=== PATIENT | female | born 2000 | race Caucasian/White ===

== ENCOUNTER 2022-06-16 13:36 | Inpatient (IN) | payer MEDICAID, SELFPAY ==
[2022-06-16] VITALS (77 sets, daily range): BP systolic 67–148; BP diastolic 33–91; PULSE 74–164; RESP 17–18; TEMP 30.8–37.4; O2SAT 87–100; BMI 40.9
[2022-06-16] MEDS: ondansetron 2 mg/ML SDV 2 mL 4 MG IVP (13:55)
[2022-06-16] MEDS: dextrose 5%-lactated ringers 1,000 ML 500 ML IV (13:55)
[2022-06-16] MEDS: miSOPROStol 100 mcg tablet 25 MCG SUBLINGUAL (14:28)
[2022-06-16 14:42] LABS: Basophils % 0.1 %; Eosinophils # 0.1 10^3/uL (0.0-0.8); Eosinophils % 0.4 %; Hematocrit 39.8 % (37.0-47.0); Hemoglobin 12.6 g/dL (11.5-15.3); Lymphocytes # 1.3 10^3/uL (1.5-6.5); Lymphocytes % 7.9 %; Mean Corpuscular HGB Conc 31.7 g/dL (30.0-36.0); Mean Corpuscular Hemoglobin 28.3 pg (28.0-34.0); Mean Corpuscular Volume 89.4 fl (81-99); Mean Platelet Volume 11.7 fL (7.4-10.4); Monocytes # 0.9 10^3/uL (0.2-0.9); Monocytes % 5.2 %; Neutrophils # 14.07 10^3/uL (1.8-8.0); Nucleated Red Blood Cells % 0 %; Platelet Count 257 10^3/cmm (130-400); Red Blood Count 4.45 10^6/uL (4.1-5.3); Red Cell Distribution Width 14.7 % (12.1-15.1); White Blood Count 16.4 10^3/uL (4.5-13.0)
[2022-06-16] MEDS: hyDROXYzine 25 mg Capsule 50 MG PO (15:05)
[2022-06-16] MEDS: fentaNYL 50 mcg/mL INJ 2mL IVP (18:01)
[2022-06-16] MEDS: lactated ringers 1,000 ML 999 ML IV ×2 (18:02→19:05)
--- NOTE | 2022-06-16 18:32 | P.ANESASSM_ITS ---
Pre-Anesthetic Assessment Height/Weight: Height 1.57 m Weight 101.605 kg Temp Pulse Resp BP O2 Del Method 98.8 F 94 17 94/59 06/16/22 16:25 06/16/22 18:01 06/16/22 18:01 06/16/22 18:01 06/16/22 15:27 Familial anesthetic complications: None Was Beta Barrera taken within 24 hours: N/A Was Clonidine taken within 24 hours: N/A Social No alcohol and No tobacco Exam alert, oriented x 3, clear to auscultation bilaterally and regular rate & rhythm Airway Submandibular: within normal limits Cervical ROM: within normal limits Mallampati: Class III Dentition: full History/ROS No significant history except as noted and No significant complaints Pulmonary None reported CV/HEM None reported None reported Hepatic None reported GI Gastroesophageal Reflux Disease Metabolic Morbid Obesity [facility] None reported Neuropsych None reported Anesthetic Plan ASA status: 2 Anesthesia: Anesthesia Evaluation and Regional (specify below) (Epidural) Risk of > 500 ml blood loss (7ml/kg in children): No Medications/Allergies Current Medications Generic Name Dose Route Start Last Admin Trade Name Freq PRN Reason Stop Dose Admin Hydroxyzine Pamoate 50 mg 06/16/22 13:31 06/16/22 15:05 Hydroxyzine 25 Mg Capsule PO 50 mg QID PRN Administration sleep, agitation or itching Dextrose/Lactated Ringer's 1,000 mls @ 125 mls/hr 06/16/22 13:45 06/16/22 15:35 Dextrose 5%-Lactated Ringers IV 0 mls/hr .Q8H ADA Infusion Lactated Ringer's 1,000 mls @ 999 mls/hr 06/16/22 17:46 06/16/22 18:02 Lactated Ringers IV 999 mls/hr .Q1H1M PRN Administration See label comments Ondansetron HCl 4 mg 06/16/22 13:31 06/16/22 13:55 Ondansetron 2 Mg/Ml Sdv 2 Ml IVP 4 mg Q4H PRN Administration NAUSEA AND VOMITING PFSH Anesthesia Female Reproductive History : 1 Data Anesthesia 06/16/22 13:40 Short CBC 06/16/22 Range/Units 13:40 WBC 16.4 H (4.5-13.0) 10^3/uL Hgb 12.6 (11.5-15.3) g/dL Hct 39.8 (37.0-47.0) % MCV 89.4 (81-99) fl Plt Count 257 (130-400) 10^3/cmm Neut % (Auto) 86.0 % Neut # (Auto) 14.07 H (1.8-8.0) 10^3/uL Cardiac Studies: No Data to Display
--- NOTE | 2022-06-16 19:24 | ANES.PROC ---
Anesthesia Procedures Procedure/Date: 06/16/22 Epidural: Time Out Performed: Yes Consents Signed: Procedure Consent and NPO Consent Consent: requested by attending/covering physician, from patient, risks and benefits reviewed and patient agrees to proceed Lumbar Level: L2-L3 Epidural position: sitting Epidural procedure: sterile prep of area (betadine), 1% lidocaine to numb the area (3 mLs), neg for paresthesia, test dose given, 1.5% xylocaine 1:200k epi (3 mL/2 mL), 0.2% Ropivacaine bolus ml (5 mLs), placed PCEA, no systemic response, sterile dressing applied, L.U.D. no apparent complications and 0.2% Ropiavacaine @ mls/hr (10 mLs/hr) Additional Comments: Attempt x2. FANTA at 8cm catheter threaded to 13 cm.
[2022-06-16] MEDS: dextrose 5%-lactated ringers 1,000 ML 125 ML IV (20:26)
[2022-06-16] MEDS: oxytocin 30 UNIT/500 ML BAG IV (23:34)
[2022-06-17] VITALS (31 sets, daily range): BP systolic 100–130; BP diastolic 50–89; PULSE 39–123; RESP 15–16; TEMP 36.6–38.2; O2SAT 98–100
[2022-06-17] MEDS: acetaminophen 325 mg Tablet 650 MG PO (01:01)
[2022-06-17] MEDS: ampicillin 2,000 MG in sodium chloride 0.9% (plus) 50 ML 100 MG IV (01:11)
--- NOTE | 2022-06-17 03:56 | P.HPUD_ITS ---
Labor & Delivery H&P Update Date of Procedure: June 17, 2022 Date H&P Performed: 06/13/22 Changes to previous documentation: Moist vaginal vault. Nitrazine positive. Admission Diagnosis: 22-year-old 1 at 38 weeks estimated gestational age presenting with spontaneous rupture of membranes Planned procedure: Spontaneous vaginal delivery Other information: The patient is a 22-year-old 1 female who has had an unremarkable . There have been no complications. Her labs have been rel atively unremarkable. They are as follows. Her blood type is a positive. Her antibody screen was negative. Her glucose screen was negative. She is rubella immune. Her GBS status is negative. The remainder of her infectious disease profile was within normal limits. The patient presented to the hospital complaining of possible rupture membranes. She was found to be nitrazine positive.
--- NOTE | 2022-06-17 04:03 | PM.DELIVERY ---
Delivery Note: Date of delivery: June 17, 2022 Pre-delivery diagnoses: 22-year-old 1 at 38 weeks estimated gestational Post-delivery diagnoses: Status post vaginal delivery Procedure: Spontaneous vaginal delivery Delivering Physician: Gal Diaz Estimated blood loss (mL): 100 Pre-Delivery Course: The patient presented to the hospital with spontaneous rupture of membranes. She was placed on Cytotec 25 mcg x 1. An epidural was placed. Pitocin augmentation was initiated the patient progressed to complete. The heart tones did become tachycardic for the last several hours. The mother also had a fever of 100.7. Because the patient also had a white count of 16,000, ampicillin was initiated. Delivery: DELIVERY: The patient progressed to complete without difficulty. She delivered a [] with a weight of [] with Apgars of []. The baby was delivered from the [] position. The baby's mouth and nose were suctioned at the site of the perineum. The baby was then completely delivered and placed on the mother's abdomen. The cord was then clamped and cut. There was no nuchal cord. There was no meconium. The placenta and 3 vessel cord were delivered intact shortly thereafter. The perineum and vaginal vault were carefully examined. No lacerations were noted. Both the mother and the baby were in stable condition. Post-Delivery Status: Good A&P Assessment and plan (1) 38 weeks gestation of : (2) Spontaneous vaginal delivery: I anticipate routine care. While the patient did have maternal fever she has no other symptoms of infection. The amniotic fluid did not smell, she has not had abdominal pain that is unusual. Coding Level of Care Code Acute Code for Chg Fwd Diagnoses 38 weeks gestation of Z3A.38 Spontaneous vaginal delivery O80
[2022-06-17] MEDS: benzocaine-menthol 78 gm Canister 1 SPRAY TOPICAL (06:25)
[2022-06-17] MEDS: lanolin oint 7 gm 1 APPLIC TOPICAL (06:25)
[2022-06-17] MEDS: prenatal vitamin Capsule 1 CAP PO (08:18)
[2022-06-17] MEDS: ibuprofen 800 mg tablet PO ×3 (08:18→20:18)
[2022-06-17] MEDS: docusate sodium 100 mg Capsule PO ×2 (08:18→20:18)
[2022-06-17] MEDS: HYDROcodone-acetaminophen 5-325 mg Tablet PO (08:18)
[2022-06-17 16:37] LABS: Hematocrit 30.5 % (37.0-47.0); Hemoglobin 9.7 g/dL (11.5-15.3); Mean Corpuscular HGB Conc 31.8 g/dL (30.0-36.0); Mean Corpuscular Hemoglobin 28.4 pg (28.0-34.0); Mean Corpuscular Volume 89.4 fl (81-99); Mean Platelet Volume 11.3 fL (7.4-10.4); Platelet Count 177 10^3/cmm (130-400); Red Blood Count 3.41 10^6/uL (4.1-5.3); White Blood Count 10.6 10^3/uL (4.5-13.0)
--- NOTE | 2022-06-18 03:30 | P.DS_ITS ---
Discharge Providers WE[employer] Date of Admission: 06/16/22 13:36 Date of Discharge: 06/18/22 Attending Provider at Admission: Gal Diaz MD Attending Provider at Discharge: Gal Diaz MD Diagnoses at Discharge Discharge Diagnosis (1) 38 weeks gestation of : Status: Acute (2) Spontaneous vaginal delivery: Status: Acute Reason for Visit Reason for Visit: Abdominal pain Hospital Course Hospital Course The patient presented to the hospital with spontaneous rupture membranes. She was given Cytotec 25 mcg x 1 to augment her labor. An epidural was placed. Pitocin augmentation was also implemented. There was some tachycardia. Her temperature also increased to 100.7. She also had a white blood count of greater than 16,000. She did not have any abdominal tenderness, or any foul- smelling amniotic fluid. She he was put on prophylactic antibiotics a couple of hours prior to delivery. She progressed to complete and had an unremarkable delivery of a healthy female . Her course has been unremarkable. Her bleeding has been within normal limits. She initially attempted to breast-feed, but decided to change to bottlefeed instead. Her pain has been well controlled. Information Peripartum Data: Infant Delivery Method: Vaginal Physical Exam Narrative: The patient is alert. She appears comfortable. Her heart has a regular rate and rhythm with no murmurs appreciated. Lungs are clear to auscultation bilaterally. Her fundus is firm and below the umbilicus. Urinary Catheter Management: Carpenter: Cath Placed During This Visit: yes, but has since been removed by the nurse Reason for Continuing Indwelling Catheter: Decision to DC Catheter Urinary Catheter Date of Insertion: 06/16/22 Urinary Catheter Time of Insertion: 20:05 Date Urinary Catheter Removed: 06/17/22 Time Urinary Catheter Discontinued: 03:06 Discharge Data Studies Completed and Pending Laboratory Results WBC 10.6 10^3/uL (4.5-13.0) 06/17/22 16:20 RBC 3.41 10^6/uL (4.1-5.3) L 06/17/22 16:20 Hgb 9.7 g/dL (11.5-15.3) L 06/17/22 16:20 Hct 30.5 % (37.0-47.0) L 06/17/22 16:20 MCV 89.4 fl (81-99) 06/17/22 16:20 MCH 28.4 pg (28.0-34.0) 06/17/22 16:20 MCHC 31.8 g/dL (30.0-36.0) 06/17/22 16:20 RDW 15.0 % (12.1-15.1) 06/17/22 16:20 Plt Count 177 10^3/cmm (130-400) D 06/17/22 16:20 MPV 11.3 fL (7.4-10.4) H 06/17/22 16:20 Neut % (Auto) 86.0 % 06/16/22 13:40 Lymph % (Auto) 7.9 % 06/16/22 13:40 [place] % (Auto) 5.2 % 06/16/22 13:40 Eos % (Auto) 0.4 % 06/16/22 13:40 Baso % (Auto) 0.1 % 06/16/22 13:40 Neut # (Auto) 14.07 10^3/uL (1.8-8.0) H 06/16/22 13:40 Lymph # (Auto) 1.3 10^3/uL (1.5-6.5) L 06/16/22 13:40 [place] # (Auto) 0.9 10^3/uL (0.2-0.9) 06/16/22 13:40 Eos # (Auto) 0.1 10^3/uL (0.0-0.8) 06/16/22 13:40 Baso # (Auto) 0.0 10^3/uL (0.0-0.1) 06/16/22 13:40 Nucleated RBC % (auto) 0 % 06/16/22 13:40 Nucleated RBCs # 0.0 /100WBC 06/16/22 13:40 Vitals Last Vital Signs Temp 98.0 F 06/17/22 21:05 Pulse 77 06/17/22 21:05 Resp 16 06/17/22 21:05 BP 125/85 06/17/22 21:05 Pulse Ox 98 06/17/22 21:05 O2 Del Method 06/17/22 21:05 Discharge Plan Discharge Patient Disposition: Home Condition: Stable Prescriptions: New ibuprofen 800 mg Tablet 800 mg PO TID Qty: 45 0RF Continued ferrous sulfate 325 mg (65 mg iron) Tablet 325 mg PO BID Vitamin 27 mg iron- 800 mcg Tablet 1 tab PO DAILY Discontinued famotidine [Pepcid] 20 mg Tablet 20 mg PO DAILY Discharge Orders: Discharge Order (Routine); Ordered 06/18/22 Ordered By: Gal Diaz Referrals: Gal Diaz MD [Physician] - 6 Weeks Discharge Diet: Usual diet Discharge Activity: Limit activity as instructed Patient Instructions: Opioid Safety Discharge Attestations WEB [employer]ESSMAN Time Spent in Discharge Care*: less than 30 min Coding Level of Care Code Acute Code for Chg Fwd Diagnoses 38 weeks gestation of Z3A.38 Spontaneous vaginal delivery O80
[2022-06-18 05:00] VITALS: BP 110/73; PULSE 65; RESP 18; TEMP 36.6; TEMP 36.7; O2SAT 98
[2022-06-18] MEDS: HYDROcodone-acetaminophen 5-325 mg Tablet PO (06:13)
--- NOTE | 2022-06-18 08:00 | ANE.PACU2 ---
Inpatient post-anesthesia follow up: Airway intact: Yes Vital signs: Temperature 98.1 F Pulse Rate 61 Respiratory Rate 17 Blood Pressure 115/60 Pulse Oximetry 98 Oxygen Delivery Me thod Room Air Oxygen Flow Rate Fraction of Inspir ed Oxygen Hydration adequate: Yes Nausea and vomiting: No Pain level: 1 Mental status: Baseline
[2022-06-18 09:45] VITALS: BP 124/67; PULSE 60; RESP 17; TEMP 36.8; O2SAT 98
[2022-06-18] MEDS: ibuprofen 800 mg tablet PO (10:12)
[2022-06-18] MEDS: docusate sodium 100 mg Capsule PO (10:12)
[2022-06-18] MEDS: prenatal vitamin Capsule 1 CAP PO (10:13)
[2022-06-18 13:15] VITALS: BP 115/60; PULSE 61; RESP 17; TEMP 36.7
[2022-06-18 13:45] VITALS: BP 115/60; PULSE 61; RESP 17; TEMP 36.7
== END 2022-06-18 13:45 | disposition home or self-care (01) | DRG 806 ==
LOC: OPOB 15:47 → OBGYN 15:58
PROVIDERS: Admitting Provider Family Medicine; Visit Provider Family Medicine
DX: O75.89 Other specified complications of labor and delivery (principal); O75.2 Pyrexia during labor, not elsewhere classified; Z37.0 Single live birth; R79.89 Other specified abnormal findings of blood chemistry; O76 Abnormality in fetal heart rate and rhythm complicating labor and delivery; O70.1 Second degree perineal laceration during delivery; Z3A.38 38 weeks gestation of pregnancy
CPT/HCPCS: 12345; 36415; 51702; 59025; 59409; 83986; 85025; 85027; 96374; 98960; 99211; J0290; J2405; J2590; J2795; J3010; J7120; J7121

== ENCOUNTER 2023-12-10 04:48 | Inpatient (IN) | payer MEDICAID, SELFPAY ==
[2023-12-09] VITALS (19 sets, daily range): BP systolic 110–144; BP diastolic 64–89; PULSE 85–120; TEMP 35.8; BMI 42.4
--- NOTE | 2023-12-09 22:20 | P.ANES_ITS ---
Anesthesia Procedures Procedure/Date: 12/10/23 Epidural: Time Out Performed: Yes Consents Signed: Procedure Consent Consent: requested by attending/covering physician and from patient Lumbar Level: L3-L4 Epidural position: sitting Epidural procedure: sterile prep of area, 1% lidocaine to numb the area, negative for paresthesia passed, test d ose given and 1.5% xylocaine 1:200k epi Additional Comments: 5 mL bolus of 0.2% ropivacaine as well a s 0.2% ropivacaine running at 10 mL/h
[2023-12-09] MEDS: lactated ringers 1,000 ML 999 ML IV ×2 (22:25→23:27)
[2023-12-09 22:43] LABS: Basophils % 0.2 %; Eosinophils # 0.1 10^3/uL (0.0-0.8); Eosinophils % 0.6 %; Hematocrit 30.8 % (36-47); Lymphocytes # 2.5 10^3/uL (0.8-4.8); Lymphocytes % 20.2 %; Mean Corpuscular HGB Conc 31.8 g/dL (30-55); Mean Corpuscular Hemoglobin 27.5 pg (27-33); Mean Corpuscular Volume 86.3 fl (85-98); Mean Platelet Volume 11.6 fL (7.4-10.4); Monocytes % 7.8 %; Neutrophils # 8.82 10^3/uL (1.8-7.7); Neutrophils % 70.7 %; Nucleated Red Blood Cells % 0 %; Platelet Count 264 10^3/cmm (157-399); Red Blood Count 3.57 10^6/uL (3.85-5.65); Red Cell Distribution Width 14.4 % (12.1-15.1); White Blood Count 12.46 10^3/uL (3.29-11.43)
--- NOTE | 2023-12-09 22:48 | P.ANESASSM_ITS ---
Pre-Anesthetic Assessment Height/Weight: Height 5 ft 2 in Weight 232 lb Temp Pulse BP 96.4 F L 85 121/77 12/09/23 20:28 12/09/23 22:44 12/09/23 22:44 Social No alcohol and No tobacco Exam alert, oriented x 3, clear to auscultation bilaterally and regular rate & rhythm Airway Submandibular: within normal limits Cervical ROM: within normal limits Mallampati: Class III Dentition: full Anesthetic Plan ASA status: 2 Anesthesia: Regional (specify below) Other: G2, P1 here for labor, 38 weeks Prior epidural without issues Patient denies any issues with Labs reviewed, platelets 264 Plan for routine epidural Medications/Allergies Home Medications Medication Instructions Recorded Confirmed Last Taken Type ferrous sulfate 325 mg (65 mg 325 mg PO BID 06/16/22 01/31/23 06/15/22 23:00 History iron) tablet vits no.124-ferrous fum 1 tab PO DAILY 06/16/22 01/31/23 06/15/22 23:00 History 27 mg iron-folic acid 800 mcg tablet ( Vitamin) ibuprofen 800 mg tablet 800 mg PO TID #45 tabs 06/18/22 01/31/23 Unknown Rx amoxicillin 875 mg tablet 875 mg PO BID 10 days #20 tabs 01/31/23 01/31/23 Unknown Rx carbamide peroxide 6.5 % ear drops 5 drp otic (ear) Q12H 4 days #15 mL 01/31/23 01/31/23 Unknown Rx (Debrox) Allergies Allergy/AdvReac Type Severity Reaction Status Date / Time No Known Allergies Allergy Verified 01/31/23 14:01 Current Medications Generic Name Dose Route Start Last Admin Trade Name Freq PRN Reason Stop Dose Admin Lactated Ringer's 1,000 mls @ 999 mls/hr 12/09/23 22:05 12/09/23 22:25 Lactated Ringers IV 999 mls/hr .Q1H1M PRN Administration See label comments PFSH Anesthesia Medical History Excessive cerumen in both ear canals Otitis media of both ears Female Reproductive History : 2 Data Anesthesia 12/09/23 22:22 Short CBC 12/09/23 Range/Units 22:22 WBC 12.46 H (3.29-11.43) 10^3/uL Hgb 9.80 L (11.27-16.99) g/dL Hct 30.8 L (36-47) % MCV 86.3 (85-98) fl Plt Count 264 (157-399) 10^3/cmm Neut % (Auto) 70.7 % Neut # (Auto) 8.82 H (1.8-7.7) 10^3/uL Cardiac Studies: 2 No Data to Display
[2023-12-09] MEDS: ROPivacaine syringe 100 MG/50 ML SYRINGE 10 MG EPIDURAL (23:26)
[2023-12-10] VITALS (45 sets, daily range): BP systolic 99–169; BP diastolic 53–128; PULSE 68–169; RESP 14–16; TEMP 36.6–36.7; O2SAT 98–99
[2023-12-10] MEDS: dextrose 5%-lactated ringers 1,000 ML 125 ML IV (00:30)
[2023-12-10] MEDS: ROPivacaine syringe 100 MG/50 ML SYRINGE 10 MG EPIDURAL (03:39)
--- NOTE | 2023-12-10 04:47 | PM.OPHPUD ---
Labor & Delivery H&P Update Date of Procedure: December 10, 2023 Date H&P Performed: 12/09/23 Changes to previous documentation: The patient was dilated to 4 cm. She was only 3 cm in the office earlier that day. Admission Diagnosis: 23-year-old 2 para 1-0-0-1 with an estimated gestational age of 40 weeks and 3 days Planned procedure: Vaginal delivery Other information: The patient is a healthy 23-year-old female who has had an relatively unremarkable . She began having contractions several hours prior to arriving at the hospital. Her membranes were intact. She had no other significant symptoms. Her labs were unremarkable. Her blood type was a positive. Her antibody screen was negative. She passed her 3-hour glucose screen. She is rubella immune. The remainder of her infectious disease profile was within normal limits. Related Problem List Diagnoses (1) 40 weeks gestation of : A&P Assessment and plan (1) 40 weeks gestation of : I anticipate routine labor and delivery. Status: Acute
[2023-12-10] MEDS: oxytocin 30 UNIT/500 ML BAG 600 UNIT IV (06:25)
--- NOTE | 2023-12-10 06:43 | PM.DELIVERY ---
Delivery Note: Date of delivery: December 10, 2023 Pre-delivery diagnoses: 23-year-old 2 para 1-0-0-1 at 40 weeks estimated gestational age in active labor Post-delivery diagnoses: Status post spontaneous vaginal delivery Procedure: Spontaneous vaginal delivery Delivering Physician: Gal Diaz Estimated blood loss (mL): 75 Pre-Delivery Course: The patient presented to the hospital in active labor. An epidural was placed. An amniotomy was performed about 2 hours prior to delivery. She progressed to complete Delivery: DELIVERY: The patient progressed to complete without difficulty. She delivered a female with a weight of 7 pounds 8 ounces with Apgars of 9, 9. The baby was delivered from the OP position and placed on the mother's abdomen. The cord was then clamped and cut. There was no nuchal cord. There was no meconium. The placenta and 3 vessel cord were delivered intact shortly thereafter. The perineum and vaginal vault were carefully examined. A second-degree posterior midline tear was noted. It was repaired with 3-0 Vicryl in the usual fashion. Both the mother and the baby were in stable condition. Post-Delivery Status: Good History History History 2 Term 1 Miscarriages/Ectopic Living Children 1 A&P Assessment and plan (1) Spontaneous vaginal delivery: I anticipate routine care. (2) 40 weeks gestation of : Coding Level of Care Code Acute Code for Chg Fwd Diagnoses Spontaneous vaginal delivery O80 40 weeks gestation of Z3A.40
[2023-12-10] MEDS: docusate sodium 100 mg Capsule PO ×2 (10:08→18:17)
[2023-12-10] MEDS: ibuprofen 800 mg tablet PO ×3 (10:09→21:15)
[2023-12-10] MEDS: PRENATAL VIT NO.130/IRON/FOLIC 1 EACH TABLET PO (10:09)
[2023-12-10] MEDS: HYDROcodone-acetaminophen 5-325 mg Tablet PO ×2 (10:21→18:17)
--- NOTE | 2023-12-10 12:24 | ANE.PACU2 ---
Inpatient post-anesthesia follow up: Vital signs: Temperature 97.8 F Pulse Rate 83 Respiratory Rate 17 Blood Pressure 124/88 Pulse Oximetry 98 Oxygen Delivery Me thod Room Air Oxygen Flow Rate Fraction of Inspir ed Oxygen Epidural Start/End: Epidural Start Date: 12/09/23 Epidural Start Time: 22:20 Epidural End Date: 12/10/23 Epidural End Time: 11:25
[2023-12-10] MEDS: benzocaine-menthol 78 gm Canister 1 SPRAY TOPICAL (18:18)
[2023-12-10 18:53] LABS: Hematocrit 29.2 % (36-47); Mean Corpuscular HGB Conc 30.8 g/dL (30-55); Mean Corpuscular Hemoglobin 26.9 pg (27-33); Mean Corpuscular Volume 87.2 fl (85-98); Mean Platelet Volume 11.8 fL (7.4-10.4); Platelet Count 224 10^3/cmm (157-399); Red Blood Count 3.35 10^6/uL (3.85-5.65); Red Cell Distribution Width 14.6 % (12.1-15.1); White Blood Count 17.98 10^3/uL (3.29-11.43)
[2023-12-11] MEDS: HYDROcodone-acetaminophen 5-325 mg Tablet PO (00:49)
[2023-12-11 04:56] VITALS: BP 130/78; PULSE 111; RESP 16; TEMP 37.1; O2SAT 98
[2023-12-11 06:00] VITALS: BMI 42.4
--- NOTE | 2023-12-11 08:08 | P.DS_ITS ---
Discharge Providers [employer] Date of Admission: 12/10/23 04:48 Date of Discharge: 12/11/23 Attending Provider at Admission: Gal Diaz MD Attending Provider at Discharge: Gal Diaz MD Diagnoses at Discharge Discharge Diagnosis (1) Spontaneous vaginal delivery: Status: Acute (2) 40 weeks gestation of : Status: Acute Reason for Visit Reason for Visit: contractions Hospital Course Hospital Course The patient had an unremarkable hospital stay. She presented in active labor. An epidural was placed. She progressed to complete and had an unremarkable delivery of a healthy appearing female infant. Her course was also unremarkable. Initially she attempted breast-feeding, but quickly shifted to bottlefeeding with formula. Her pain has been well-controlled. Her bleeding has been within normal limits. Information Peripartum Data: Infant Delivery Method: Vaginal Physical Exam 2 Narrative: The patient is alert. She appears comfortable. Her heart has a regular rate and rhythm with no murmurs appreciated. Lungs are clear to auscultation bilaterally. Her fundus is firm and below the umbilicus. Urinary Catheter Management: Carpenter: Cath Placed During This Visit: yes Urinary Catheter Date of Insertion: 12/10/23 Urinary Catheter Time of Insertion: 23:55 History History History 2 Term 1 Miscarriages/Ectopic Living Children 1 Discharge Data Studies Completed and Pending Laboratory Results WBC 17.98 10^3/uL (3.29-11.43) H 12/10/23 18:25 RBC 3.35 10^6/uL (3.85-5.65) L 12/10/23 18:25 Hgb 9.00 g/dL (11.27-16.99) L 12/10/23 18:25 Hct 29.2 % (36-47) L 12/10/23 18:25 MCV 87.2 fl (85-98) 12/10/23 18:25 MCH 26.9 pg (27-33) L 12/10/23 18:25 MCHC 30.8 g/dL (30-55) 12/10/23 18:25 RDW 14.6 % (12.1-15.1) 12/10/23 18:25 Plt Count 224 10^3/cmm (157-399) 12/10/23 18:25 MPV 11.8 fL (7.4-10.4) H 12/10/23 18:25 Neut % (Auto) 70.7 % 12/09/23 22:22 Lymph % (Auto) 20.2 % 12/09/23 22:22 [place] % (Auto) 7.8 % 12/09/23 22:22 Eos % (Auto) 0.6 % 12/09/23 22:22 Baso % (Auto) 0.2 % 12/09/23 22:22 Neut # (Auto) 8.82 10^3/uL (1.8-7.7) H 12/09/23 22:22 Lymph # (Auto) 2.5 10^3/uL (0.8-4.8) 12/09/23 22:22 [place] # (Auto) 1.0 10^3/uL (0.2-0.9) H 12/09/23 22:22 Eos # (Auto) 0.1 10^3/uL (0.0-0.8) 12/09/23 22:22 Baso # (Auto) 0.0 10^3/uL (0.0-0.1) 12/09/23 22:22 Nucleated RBC % (auto) 0 % 12/09/23 22:22 Nucleated RBCs # 0.0 /100WBC 12/09/23 22:22 Blood Type A Positive 12/09/23 22:22 Rho(D) Type Rh positive 12/09/23 22:22 Antibody Screen Negative 12/09/23 22:22 Vitals Last Vital Signs Temp 98.7 F 12/11/23 04:56 Pulse 111 H 12/11/23 04:56 Resp 16 12/11/23 04:56 BP 130/78 12/11/23 04:56 Pulse Ox 98 12/11/23 04:56 O2 Del Method Room Air 12/11/23 04:56 Results Labs OB ([facility]): Obstetrics US 09/04/23 Blood Type A Positive 12/09/23 Antibody Screen Negative 12/09/23 Hct 29.2 % (36-47) L 12/10/23 Hgb 9.00 g/dL (11.27-16.99) L 12/10/23 Rho(D) Type Rh positive 12/09/23 Plt Count 224 10^3/cmm (157-399) 12/10/23 Discharge Plan Discharge Patient Disposition: Home Condition: Stable Prescriptions: New ibuprofen 800 mg Tablet 800 mg PO TID Qty: 45 0RF Discharge Orders: Discharge Order (Routine); Ordered 12/11/23 Ordered By: Gal Diaz Referrals: Gal Diaz MD [Physician] - 6 Weeks (Please set up her appointment in the morning. Thank you. :-)) Discharge Diet: Usual diet Discharge Activity: Limit activity as instructed Patient Instructions: Depression (DC), Opioid Safety (DC), Preeclampsia and Eclampsia After Delivery (GEN), Hemorrhage (DC), OB Discharge Report, OB Food/Drug Interaction Guide, OB Care at Home, Opioid Safety, OB Vaginal Deliveries, Abnormal Bleeding Discharge Attestations [employer] Time Spent in Discharge Care*: less than 30 min Coding Level of Care Code Acute Code for Chg Fwd Diagnoses Spontaneous vaginal delivery O80 40 weeks gestation of Z3A.40
[2023-12-11] MEDS: docusate sodium 100 mg Capsule PO (09:41)
[2023-12-11] MEDS: ibuprofen 800 mg tablet PO (09:41)
[2023-12-11] MEDS: PRENATAL VIT NO.130/IRON/FOLIC 1 EACH TABLET PO (09:41)
[2023-12-11] MEDS: benzocaine-menthol 78 gm Canister 1 SPRAY TOPICAL (10:19)
[2023-12-11 10:20] VITALS: BP 124/88; PULSE 83; RESP 17; TEMP 36.6
[2023-12-11 10:28] VITALS: BP 124/88; PULSE 83; RESP 17; TEMP 36.6
== END 2023-12-11 10:28 | disposition home or self-care (01) | DRG 807 ==
LOC: OPOB 04:48 → OBGYN 04:48
PROVIDERS: Admitting Provider Family Medicine; Visit Provider Family Medicine
DX: O48.0 Post-term pregnancy (principal); Z37.0 Single live birth; Z3A.40 40 weeks gestation of pregnancy
CPT/HCPCS: 36415; 51702; 59025; 59409; 85025; 85027; 86850; 86900; 98960; 99211; J2590; J2795; J7120; J7121

== ENCOUNTER → 2024-06-07 13:20 | Outpatient (BNVA) | payer MEDICAID, SELFPAY | PROVIDERS: PCP Family Medicine; Visit Provider Specialist | DX: M67.432 Ganglion, left wrist (principal) | CPT/HCPCS: 73110 ==

== ENCOUNTER 2024-06-17 08:48 | Outpatient (CLI) | payer MEDICAID, SELFPAY ==
--- NOTE | 2024-06-17 09:30 | MRR_ITS ---
PROCEDURE INFORMATION: Exam: MR Left Upper Extremity Joint Without Contrast; Wrist Exam date and time: 06/17/2024 9:30 AM Age: 24 years old Clinical indication: Pain; Wrist; Left; Additional info: Pain/mass TECHNIQUE: Imaging protocol: Magnetic resonance imaging of the left upper extremity without contrast. Exam focused on the wrist. COMPARISON: CR XR wrist LT min 3V* [id number] 06/07/2024 1:23 PM FINDINGS: Bones/joints: No significant joint effusion. No acute fracture. Scapholunate ligament: The scapholunate ligament is intact. Lunotriquetral ligament: The lunotriquetral ligament is intact. Triangular fibrocartilage complex: Possible perforation of the triangular fibrocartilage complex. Flexor compartment tendons: The flexor retinaculum is intact. Extensor compartment tendons: Mild tendinosis of the extensor carpi ulnaris tendon. Along the dorsal aspect of the wrist, deep to the extensor tendons of the digits, there is a bilobed fluid signal lesion measuring 0.7 x 0.4 x 1.1 cm. This is suspected to represent a ganglion. There is tenosynovitis involving the extensor carpi radialis longus tendon. Nerves: The median nerve is unremarkable. Soft tissues: Mild posterior subcutaneous edema. Guyon's canal: The contents of Guyon's canal are unremarkable. MR/MR wrist LT wo con* [id number] IMPRESSION: 1. Along the dorsal aspect of the wrist, deep to the extensor tendons of the digits, there is a bilobed fluid signal lesion suspected to represent a ganglion. Consider MRI with contrast to exclude enhancing component/more concerning lesion. 2. Mild tendinosis of the extensor carpi ulnaris tendon. 3. Tenosynovitis involving the extensor carpi radialis longus tendon. 4. Possible perforation of the triangular fibrocartilage complex. 5. Mild posterior subcutaneous edema.
== END 2024-06-17 08:49 | disposition home or self-care (01) ==
PROVIDERS: PCP Family Medicine; Visit Provider Specialist
DX: S69.82XA Other specified injuries of left wrist, hand and finger(s), initial encounter (principal); X58.XXXA Exposure to other specified factors, initial encounter; R93.6 Abnormal findings on diagnostic imaging of limbs; M67.834 Other specified disorders of tendon, left wrist; M65.88 Other synovitis and tenosynovitis, other site
CPT/HCPCS: 73221